=== PATIENT | female | born 1950 | race Caucasian/White ===

== ENCOUNTER 2017-04-27 14:36 | Inpatient (IN) | payer OTHER ==
[~2017-04-27] VITALS: Ht 157.5 cm; Wt 88.0 kg
--- NOTE | ~2017-04-27 | CATHLAB ---
[facility] [address] [place] [address] INVASIVE PROCEDURE REPORT Name: DAMIÁN WELSH Room #: 209-P ADM IN M.R.#: [id number] Admission: 04/27/17 Attend Phys: Soham Cain Discharge: Date of : 48 Date of Service: 04/28/17 1045 Report #: [id number] THIS REPORT FOR: //name// APPROVED REPORT Study performed: 04/28/2017 06:57:13 Patient Details Patient Status: In-Patient Room #: The patient is a 66 year-old female Event Personnel Luis Enrique Lindquist Laborer [employer], Hung Horvath RN, Hugh Graham Partnoy, Nancy RTR, NET SQL DEVELOPER Monitor Procedures Performed Left Heart Cath w/or w/o Coronaries [id number] [facility] Indication Chest pain Procedure Narrative The Right Groin^ was infiltrated with 1% Lidocaine subcutaneous anesthesia. A PINNACLE 6FR Sheath #[id number] sheath was inserted into the RFA^. Coronary angiography was performed using coronary diagnostic catheters. The right coronary system was accessed and visualized with a JR4 catheter. The left coronary system was accessed and visualized with a JL4 catheter. The left ventricle was accessed and visualized with a PIGTAIL catheter. Left ventricular/Aortic Valve gradient assessed via catheter pullback. Left ventriculogram was performed in 30 degree projection. Closure device was deployed with a 6 Fr MYNXGRIP 6/7F #[id number]. The patient tolerated the procedure well and there were no complications associated with the procedure. Intraoperative Conscious Sedation Sedation start time: 7.35 Case end Time: 7.47 Fentanyl 50 mcg Versed 1.5 mg Fluoro Time: 1.27 minutes Dose: DAP 2733.20 cGycm2 322 mGy Contrast Type and Amount: Omnipaque 90 ml Diagnostic Cath Left Main Normal left main [facility] [place] [address] INVASIVE PROCEDURE REPORT Name: DAMIÁN Room #: 209-P [facility] IN M.R.#: [id number] Admission: 04/27/17 Attend Phys: Soham Cain Discharge: Date of : 48 Date of Service: 04/28/17 1045 Report #: [id number] LAD Normal LAD that extends to the distal anterior wall Diagonal 1 Moderate size normal diagonal branch Circumflex Moderate in size and angiographically nondominant. OM1 Single moderate size marginal branch, angiographically normal Right Coronary Large dominant right coronary R PDA Normal posterior descending RPLV Normal posterior lateral branch Ramus Normal ramus vessel Left Ventriculography The left ventricular ejection fraction is estimated to be 60-65%. Left ventricular wall motion abnormalities are not present. There is no mitral insufficiency. Hemodynamics The aortic pressure is 118/63 mmHg with a mean of 83 mmHg. The left ventricular pressure is 111/9 mmHg with a mean of mmHg. The left ventricular end diastolic pressure is 13 mmHg. There was no gradient across the aortic valve upon pullback. Pullback from the left ventricle to the aorta revealed no gradient across the aortic valve. Conclusion 1. Normal global and regional left ventricular systolic function. Ejection fraction 65% 2. Normal coronary vasculature. Right coronary dominant circulation. <ELECTRONICALLY SIGNED> By: Luis Enrique Lindquist MD, FACC 04/28/17 1045 1045 1045 Luis Enrique Lindquist MD, FACC /INF
--- NOTE | ~2017-04-27 | EKG ---
[place] [address] [facility] [place] [address] ELECTROCARDIOGRAM REPORT Name: DAMIÁN WELSH Room #: 209-P ADM IN M.R.#: [id number] Admission: 04/27/17 Attend Phys: Soham Berger Discharge: Date of : 48 Report #: [id number] THIS REPORT FOR: //name// [facility] Test Date: 2017-04-27 Test Time: 17:03:36 Pat Name: DAMIÁN WELSH Department: Room: 209 P Gender: F Customer Experience Manager: Daren LOMBARDO : 1950 Requested By: Toshia Pagan Order Number: [id number] MD: Luis Enrique Lindquist Measurements Intervals [place] Rate: 62 P: 43 DE: 160 QRS: 2 QRSD: 98 T: 15 QT: 477 QTc: 485 Interpretive Statements Sinus rhythm Low voltage, precordial leads Abnrm T, consider ischemia, anterolateral lds No previous ECG available for comparison Electronically Signed On 04-27-2017 19:31:13 CDT by Luis Enrique Lindquist [email or web address] <ELECTRONICALLY SIGNED> By: Luis Enrique Lindquist MD, [facility] 04/27/171930 02 02 Luis Enrique Lindquist MD, FAC /EPI
--- NOTE | ~2017-04-27 | 2DMMODE ---
[facility] [address] [facility] [place] [address] 2 D/M-MODE ECHOCARDIOGRAM Name: DAMIÁN WELSH Room #: 209-P ADM IN M.R.#: [id number] Admission: 04/27/17 Attend Phys: Soham Cain Discharge: Date of : 48 Date of Service: 04/28/17 1252 Report #: [id number] THIS REPORT FOR: //name// APPROVED REPORT Study performed: 04/28/2017 11:32:55 EXAM: Comprehensive 2D, Doppler, and color-flow Echocardiogram Patient Location: Bedside Room #: 209 Status: routine BSA: 1.89 HR: 72 bpm BP: 120/68 mmHg Rhythm: NSR Other Information Study Quality: Good Indications Chest pain, short of breath. Hx: HTN, PSVT 2D Dimensions RVDd: 33.32 mm LVEF(%): 71.52 (>50%) IVSd: 8.80 (7-11mm) LVOT Diam: 18.85 (18-24mm) LVDd: 46.36 mm PWd: 8.94 (7-11mm) Ascending Ao: 34.07 (22-36mm) LVDs: 27.49 (25-40mm) Aortic Root: 31.72 mm Appiah's LVEF: 71.52 % Volumes Left Atrial Volume (Systole) Single Plane 4CH: 36.28 mL Single Plane 2CH: 49.52 mL LA ESV Index: 24.00 mL/m2 Aortic Valve AoV Peak Blanco.: 1.85 m/s AO Peak Gr.: 14.52 mmHg LVOT Max P.89 mmHg LVOT Max V: 1.21 m/s ANGELIKA Vmax: 1.83 cm2 Mitral Valve E/A Ratio: 0.8 MV Decel. Time: 268.13 ms [facility] [employer] [place] [address] 2 D/M-MODE ECHOCARDIOGRAM Name: WELSHDAMIÁN Room #: 209-P [facility] IN M.R.#: [id number] Admission: 04/27/17 Attend Phys: Soham Cain Discharge: Date of : 48 Date of Service: 04/28/17 1252 Report #: [id number] MV E Max Blanco.: 0.97 m/s MV A Blanco.: 1.20 m/s MV PHT: 77.76 ms IVRT: 73.82 ms Pulmonary Valve PV Peak Blanco.: 1.00 m/s PV Peak Gr.: 3.99 mmHg Pulmonary Vein P Vein S: 0.74 m/s P Vein A: 0.33 m/s P Vein D: 0.55 m/s P Vein A Dur.: 129.2 msec P Vein S/D Ratio: 1.35 Tricuspid Valve TR Peak Blanco.: 2.80 m/s RAP Estimate: 5.00 mmHg TR Peak Gr.: 31.41 mmHg PA Pressure: 36.00 mmHg Left Ventricle The left ventricle is normal size. There is normal LV segmental wall motion. There is normal left ventricular wall thickness. Left ventricular systolic function is normal. LVEF is 55-60%. Grade I - abnormal relaxation pattern. Right Ventricle The right ventricle is normal size. The right ventricular systolic function is normal. Atria The left atrium size is normal. The right atrium size is normal. Aortic Valve The aortic valve is normal in structure. No aortic regurgitation is present. There is no aortic valvular stenosis. Mitral Valve The mitral valve is normal in structure. Trace mitral regurgitation. Tricuspid Valve The tricuspid valve is normal in structure. Trace to mild tricuspid regurgitation. Estimated PAP is 35mmHg. Pulmonic Valve The pulmonary valve is normal in structure. Trace pulmonic [facility] [address] [place] [address] 2 D/M-MODE ECHOCARDIOGRAM Name: DAMIÁN WELSH Room #: 209-P [facility] IN [facility].#: [id number] Admission: 04/27/17 Attend Phys: Soham Cain Discharge: Date of : 48 Date of Service: 04/28/17 1252 Report #: [id number] regurgitation. Great Vessels The aortic root is normal in size. The ascending aorta is normal in size. IVC is normal in size and collapses >50% with inspiration. Pericardium There is no pericardial effusion. <Conclusion> Left ventricular systolic function is normal. There is normal LV segmental wall motion. LVEF is 55-60%. Grade I diastolic dysfunction The aortic valve is normal in structure. No aortic regurgitation or stenosis The mitral valve is normal in structure. Trace mitral regurgitation. Trace to mild tricuspid regurgitation. Estimated pulmonary artery pressure of 35mmHg. There is no pericardial effusion. <ELECTRONICALLY SIGNED> By: Luis Enrique Lindquist MD, FACC 04/28/17 1252 125 125 Luis Enrique Lnidquist MD, FACC /INF
[2017-04-27 18:07] LABS: HEMATOCRIT 37.8 % (37.0-47.0); MCH 29.1 pg (26.0-34.0); MCHC 34.3 g/dL (28.0-37.0); MCV 84.9 fL (80.0-100.0); RBC 4.45 mil/uL (4.20-5.00); RDW 14.6 % (10.5-14.5)
[2017-04-27 18:10] LABS: CREATININE 0.9 mg/dL (0.6-1.0); POTASSIUM 3.8 mmol/L (3.5-5.1)
[2017-04-27 19:00] LABS: CHOLESTEROL 199 mg/dL (<200); HDL CHOLESTEROL 44 mg/dL (>40); LDL CHOLESTEROL 119 mg/dL (<100); TC:HDL 4.5 Ratio (Not establshd); TRIGLYCERIDE 184 mg/dL (<150); VLDL 37 mg/dL (<40)
[2017-04-27 19:05] LABS: SERUM ASSESSMENT Clear
[2017-04-27 19:16] VITALS: BP 121/71
[2017-04-28] VITALS (13 sets, daily range): BP systolic 102–141; BP diastolic 55–77
[2017-04-28] MEDS ORDERED: CARDIZEM CD240 MG PO (01:11)
[2017-04-28] MEDS ORDERED: CALCIUM 600 +1 EAC1 PO (01:11)
[2017-04-28] MEDS ORDERED: LOPRESSOR25 PO (01:12)
[2017-04-28] MEDS ORDERED: NAPROSYN500 MG PO (01:13)
[2017-04-28] MEDS ORDERED: OMEPRAZOLE40 MG PO (01:15)
[2017-04-28] MEDS ORDERED: TRAMADOL 50 MG50 MG PO (01:16)
[2017-04-28] MEDS ORDERED: TRAZODONE HCL100 MG PO (01:17)
[2017-04-28] MEDS ORDERED: DIOVAN320 MG PO (01:19)
[2017-04-28] MEDS ORDERED: VOLTAREN GEL 1100 G2 TOP (01:21)
[2017-04-28 04:31] LABS: ABSOLUTE NEUTROPHILS 3.2 thou/uL (1.4-8.2); BASOPHILS 0.9 % (0.0-2.0); EOSINOPHILS 2.9 % (0.0-3.0); HEMATOCRIT 35.7 % (37.0-47.0); HEMOGLOBIN 11.8 gm/dL (12.0-15.0); LYMPHOCYTES 45.8 % (24.0-44.0); MCH 28.2 pg (26.0-34.0); MCHC 33.1 g/dL (28.0-37.0); MCV 85.2 fL (80.0-100.0); MONOCYTES 8.8 % (1.0-8.0); PLATELET COUNT 283 thou/uL (150-400); POLYS 41.6 % (36.0-66.0); RBC 4.19 mil/uL (4.20-5.00); RDW 14.2 % (10.5-14.5); WBC 7.6 thou/uL (4.0-11.0)
[2017-04-28 05:00] LABS: ALBUMIN 3.1 g/dL (3.4-5.0); ANION GAP 10 mmol/L (7-16); BUN 19 mg/dL (7-18); CALCIUM 8.7 mg/dL (8.5-10.1); CHLORIDE 106 mmol/L (98-107); CO2 25 mmol/L (21-32); CREATININE 0.9 mg/dL (0.6-1.0); GLUCOSE 95 mg/dL (74-106); MAGNESIUM 1.9 mg/dL (1.8-2.4); POTASSIUM 3.8 mmol/L (3.5-5.1); SGOT 16 U/L (15-37); SGPT 18 U/L (30-65); SODIUM 141 mmol/L (136-145); TOTAL BILIRUBIN 0.3 mg/dL (<0.1-1.0); TOTAL PROTEIN 6.1 g/dL (6.4-8.2); TROPONIN-I < 0.04 ng/mL (<0.06)
== END 2017-04-28 16:20 | disposition home or self-care (01) | DRG 287 ==
LOC: 2N 14:36 → ENTRNSPT 04-28 16:14 → 2N 04-28 16:20
PROVIDERS: Nurse Practitioner
PROC: B2111ZZ Fluoroscopy of Multiple Coronary Arteries using Low Osmolar Contrast (ICD-10-PCS; principal; 2017-04-28)
PROC: B2151ZZ Fluoroscopy of Left Heart using Low Osmolar Contrast (ICD-10-PCS; principal; 2017-04-28)
PROC: 4A023N7 Measurement of Cardiac Sampling and Pressure, Left Heart, Percutaneous Approach (ICD-10-PCS; principal; 2017-04-28)
DX: R07.9 Chest pain, unspecified (principal); E78.5 Hyperlipidemia, unspecified; K21.9 Gastro-esophageal reflux disease without esophagitis; I10 Essential (primary) hypertension; F32.9 Major depressive disorder, single episode, unspecified; G62.9 Polyneuropathy, unspecified; F12.90 Cannabis use, unspecified, uncomplicated; Z66 Do not resuscitate; M79.7 Fibromyalgia; Z88.0 Allergy status to penicillin; Z88.8 Allergy status to other drugs, medicaments and biological substances; Z90.49 Acquired absence of other specified parts of digestive tract; Z83.3 Family history of diabetes mellitus; Z82.49 Family history of ischemic heart disease and other diseases of the circulatory system; Z90.710 Acquired absence of both cervix and uterus
CPT/HCPCS: 10797